=== PATIENT | male | born 1995 | race Caucasian/White ===

== ENCOUNTER 2018-08-28 12:56 | Emergency (ER) | payer SELFPAY ==
[2018-08-28 13:01] VITALS: BP 125/68
[2018-08-28] MEDS ORDERED: Acetaminophen TAB* 325 MG PO ONE (13:21)
[2018-08-28 13:25] LABS: Influenza A Molecular POSITIVE (Negative)
[2018-08-28] MEDS ORDERED: Ibuprofen TAB* 800 MG PO ONE (13:32)
--- NOTE | 2018-08-28 15:18 | ED ---
Influenza-Like Illness - HPI Summary HPI Summary: Patient is a 22-year-old male who presents emergency department for fever, headache, myalgias and mild abdominal pain that started this morning upon waking up. Patient has no past medical history. He is a student [employer]. He notes he is feeling his heart beating fast denies pain. Denies cough, sore throat, vomiting, diarrhea, urinary symptoms. Immunizations are up- to-date. Symptoms are mild in severity. No current modifying factors. - History of Current Complaint Chief Complaint: EDFluSymptoms Time Seen by Provider: 08/28/18 13:13 Hx Obtained From: Patient - Allergy/Home Medications Allergies/Adverse Reactions: Allergies Allergy/AdvReac Type Severity Reaction Status Date / Time levoatirizino Allergy Itching Uncoded 08/28/18 13:02 Home Medications: Home Medications NK [No Home Medications Reported] 08/28/18 [History Confirmed 08/28/18] PMH/Surg Hx/FS Hx/Imm Hx Previously Healthy: Yes Infectious Disease History: No Infectious Disease History: Denies: Traveled Outside the [place] in Last 30 Days - Social History Occupation: Student Lives: Dormitory/Roommates Alcohol Use: Occasionally Substance Use Type: Reports: None Smoking Status (MU): Never Smoked Tobacco Review of Systems Positive: Fever, Chills Eyes: Negative Cardiovascular: Negative Respiratory: Negative Negative: Shortness Of Breath, Cough Positive: Abdominal Pain. Negative: Vomiting, Diarrhea, Nausea Genitourinary: Negative Positive: Myalgia Skin: Negative Negative: Rash Positive: Headache All Other Systems Reviewed And Are Negative: Yes Physical Exam Triage Information Reviewed: Yes Vital Signs On Initial Exam: Initial Vitals Temp Pulse Resp BP Pulse Ox 101.8 F 110 18 125/68 100 08/28/18 12:58 08/28/18 12:58 08/28/18 12:58 08/28/18 12:58 08/28/18 12:58 Vital Signs Reviewed: Yes Appearance: Positive: Well-Appearing - Pt. lying in bed in NAD. Wearing mask. Friend present. Skin: Positive: Warm, Dry Head/Face: Positive: Normal Head/Face Inspection Eyes: Positive: Normal, EOMI ENT: Positive: Pharyngeal erythema. Negative: Tonsillar swelling, Tonsillar exudate Neck: Positive: Supple, Nontender. Negative: Nuchal Rigidity Respiratory/Lung Sounds: Positive: Clear to Auscultation, Breath Sounds Present. Negative: Rales, Rhonchi, Wheezes Cardiovascular: Positive: Normal, RRR. Negative: Murmur Abdomen Description: Positive: Nontender, Soft Musculoskeletal: Positive: Normal, Strength/ROM Intact Neurological: Positive: Normal, CN Intact II-III Psychiatric: Positive: Affect/Mood Appropriate Diagnostics - Vital Signs Vital Signs Temp Pulse Resp BP Pulse Ox 08/28/18 14:00 100.0 F 108 18 125/68 100 08/28/18 13:08 109 100 08/28/18 12:58 101.8 F 110 18 125/68 100 - Laboratory Lab Results: Lab Results 08/28/18 Range/Units 13:20 Influenza A (Rapid) Positive A (Negative) Lab Statement: Any lab studies that have been ordered have been reviewed, and results considered in the medical decision making process. Flu Symptom Course/Dx - Course Course Of Treatment: Patient is positive for the flu. He is nontoxic. Does have a fever and is mildly tachycardic. Patient is given a dose of Motrin. Advised patient started taking Tylenol Motrin every 3 hours for pain and fever. To increase fluids and rest. To follow-up with the [facility] on Thursday if needed. Did offer patient Tamiflu given symptoms started which he declined. Return to the ER if symptoms change or worsen. Patient understands and agrees with plan. - Diagnoses Differential Diagnosis/HQI/PQRI: Positive: Influenza, Pneumonia, Upper Respiratory Infection Provider Diagnoses: Influenza Discharge - Sign-Out/Discharge Documenting (check all that apply): Patient Departure Patient Received Moderate/Deep Sedation with Procedure: No - Discharge Plan Condition: Good Disposition: HOME Patient Education Materials: Influenza (ED) Forms: *School Release Referrals: [facility] [Primary Care Provider] - Additional Instructions: Follow up with [facility] Thursday if needed Increase fluids and rest Rotate between Motrin (ibuprofen) 600mg and Tylenol (650mg) every 3 hours Return to ER if symptoms change or worsen - Billing Disposition and Condition Condition: GOOD Disposition: Home
== END 2018-08-28 14:00 | disposition home or self-care (01) ==
LOC: ED 12:56
DX: J11.1 Influenza due to unidentified influenza virus with other respiratory manifestations (principal)
CPT/HCPCS: 99282; A9270-GY